=== PATIENT | female | born 1950 | race Caucasian/White ===

== ENCOUNTER 2024-06-11 23:57 | Emergency (ER) | payer MEDICARE ==
[~2024-06-11] VITALS: Ht 162.6 cm; Wt 99.8 kg
[2024-06-12] VITALS: TEMP 98.8
[2024-06-12 00:17] VITALS: PULSE 69; RESP 17; O2SAT 99
== END 2024-06-12 00:23 | disposition home or self-care (01) ==
LOC: ER 06-12 00:02
DX: K59.00 Constipation, unspecified (principal); I10 Essential (primary) hypertension; E78.5 Hyperlipidemia, unspecified; E03.9 Hypothyroidism, unspecified; K21.9 Gastro-esophageal reflux disease without esophagitis; E66.9 Obesity, unspecified
CPT/HCPCS: 99283